=== PATIENT | female | born 1980 | race Native Hawaiian/Other Pacific Islander ===

== ENCOUNTER 2020-11-18 13:21 | Emergency (ER) | payer OTHER ==
[~2020-11-18] VITALS: Ht 170.2 cm; Wt 135.2 kg
[2020-11-18 13:32] VITALS: TEMP 98.1
[2020-11-18] MEDS ORDERED: MOBIC7.5 M1 PO (14:01)
[2020-11-18 14:24] VITALS: BP 130/78
== END 2020-11-18 14:39 | disposition home or self-care (01) ==
LOC: ED 13:21
PROC: 2W3DX1Z Immobilization of Left Lower Arm using Splint (ICD-10-PCS; principal; 2020-11-18)
DX: M77.8 Other enthesopathies, not elsewhere classified (principal); M65.4 Radial styloid tenosynovitis [de Quervain]
CPT/HCPCS: 96372; 99283; J1885

== ENCOUNTER 2020-12-29 14:50 | Emergency (ER) | payer OTHER ==
[~2020-12-29] VITALS: Ht 170.2 cm; Wt 127.0 kg
[~2020-12-29 14:50] MED LIST: MOBIC7.5 M1 PO
[2020-12-29 17:03] VITALS: BP 138/87; TEMP 97.9
== END 2020-12-29 17:15 | disposition home or self-care (01) ==
LOC: ED 14:50
DX: S93.492A Sprain of other ligament of left ankle, initial encounter (principal); X50.1XXA Overexertion from prolonged static or awkward postures, initial encounter; W18.39XA Other fall on same level, initial encounter; Y92.89 Other specified places as the place of occurrence of the external cause
CPT/HCPCS: 99283